=== PATIENT | male | born 1955 | race Caucasian/White ===

== ENCOUNTER 2022-10-06 16:00 | Outpatient (RCR) | payer MEDICARE, SELFPAY ==
--- NOTE | 2022-10-02 12:58 | HP.PTEVAL_ITS ---
Patient's Visit Information BRIDGETTE KINGSLEY is a 66 year old M referred to Physical Therapy by Dr. Frank Arauz DO with a diagnosis of CONTUSION R SCAPULA. Date of Evaluation: 10/02/22 Physical Therapist: Gilma Kramer PT, Cert MDT - Visit Plan Frequency: 1x/Week Duration: 4-6 Weeks Plan: *HEP INSTRUCTION*. POSTURE CORRECTION/STRENGTHENING. R UE ROM, STRETCHING AND STRENGTHENING TO HELP MEET SET GOALS. 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 Disability: NO. Present symptoms: RIGHT SHLD PAIN DOWN TO ELBOW. NO NUMBNESS OR TINGLING. INTERMITTENT NECK PAIN. Present since: JUL 22 2022. Pain Scale: Worst - 4/10 Least - 2/10. Currently: 09/08. Commenced as a result of: FELL DOWN ABOUT 8 STEPS AT HOUSE AT HOME. Symptoms at onset: RIGHT RIB PAIN AND BRUISING. NO FX'S. Worse: LIFTING. Better: STRETCHING R UE OVER HEAD, ICE, KEEPING IT MOVING. Disturbed sleep: NO. Previous history/Previous treatment: UNREMARKABLE. This episode: URGENT CARE IN [place]. CHIROPRACTOR X 1 VISIT WITH NO EFFECT. STATES THE CHIROPRACTOR TOLD HIM NOTHING WAS BROKE AND TO JUST PUT ICE ON IT. PATIENT REPORTS HE ALSO PUT IBUPROFEN TO. PATIENT REPORTS DR. ARNOLD PRESCRIBED MALOXACAM AND HE IS ON IT NOW. NO INJECTIONS. NO SURGERY. Dizziness: NO. Tinnitis: NO. Nausea: NO. Shortness of Breath:NO. Difficulty Swollowing: NO. Gait: NORMAL. Accidents: NO. Unexplained weight loss: NO. Imaging: R RIB X-RAYS AT ONSET - NEGATIVE. [facility] ORDERED X-RAYS OF NECK AND R SHLD BECAUSE RIB PAIN CLEARED UP. PATIENT REPORTS HE FOUND MILD ARTHRITIS IN HIS NECK AND MAYBE A SMALL FX OF SHLD BUT PATIENT REPORTS DR. WISE WASN'T WORRIED ABOUT IT AND SAID IT WOULD HEAL ON HIS OWN. PMH/Recent major surgery: UNREMARKABLE. OTHER: PATIENT REPORTS DR. ARNOLD TOLD HIM AN MRI MIGHT TELL THEM MORE ABOUT THE LOCATION OF THE FRACTION. PATIENT REPORTS HE WANTS TO GIVE IT TIME BEFORE DOING MRI. - Objective Sitting Posture/Standing Posture: FH. RSH'S. R SHLD LEVEL LOWER THAN LEFT. NO TORTICOLLIS. Active Correction of posture: NE. Other Observations: INDEP GAIT AND TRANSFERS. Sensory deficit: MARI UE LIGHT TOUCH SENSATION GROSSLY IN TACT AND SYMMETRICAL. ROM deficit: TIGHT R SHLD ER WITH 90 DEG OF ABD IN SITTING. FULL PASSIVE ER. FULL ACTIVE AND PASSIVE RIGHT SHLD FLEX AND ABD. PAINFUL AND LIMITED R SHLD IR IN SUPINE TO 60 DEG. Motor deficit: R SHLD ER 4/5 AND TESTING PROVOKES C/O MILD R SHLD BLADE PAIN. 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 R SHLD FLEX 5/5, ABD 5/5, IR 4/5, ER 4/5 WITH MMT'ING. R ELBOW 5/5. 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 Dural Signs: NEGATIVE MARI UE'S. Cervical Mvmt Loss: Flex: NIL. Pro: NIL. Ext: MIN. Ret: MIN. RSB: MIN. LSB: MIN. R Rot: MIN. L Rot: MIN. PATIENT REPORTS NECK PAIN WITH MARI CERVICAL ROTATION ROM TESTING. Postural strength: FAIR. TREATMENT: INSTRUCTED PATIENT IN R UE SLEEPER STRETCH FOR IR ROTATION STRETCHING 10-20 REPS, 2-3 TIMES A DAY TOLERATED. RECOMMENDED PT 2-3 TIMES A WK X 3-4 WKS BUT PATIENT WOULD LIKE TO TRY TO COME 1X A WK AND DO MUCH POSSIBLE ON HIS OWN WITH HEP. - Balance/Special Test Scores Quick DASH Score: 18.1800 - Goals Goal 1:: DECREASE C/O R SHLD PAIN Goal Time Frame: 4-6 Weeks Goal 2:: RESTORE FULL ROM R SHLD TO ALLOW FOR RETURN TO PRIOR LEVEL OF FUNCTION Goal Time Frame: 4-6 Weeks Goal 3:: INCREASE RIGHT UE FUNCTIONAL STRENGTH TO IMPROVE WORK FUNCTION Goal Time Frame: 4-6 Weeks Goal 4:: PATIENT WILL BE INDEP WITH HEP FOR CONTINUED IMPROVEMENT ONCE FORMAL PHYSICAL THERAPY CONCLUDES. Goal Time Frame: 4-6 Weeks - Anticipated Interventions Patient/Client Instruction: Educate patient on: Condition, Plan of Care, Risk Factors For the Purpose of:: To improve self management Therapeutic Exercise to Include: Strength training, Body mechanics, Postural training, Flexibilty training, Neuromotor development, Scapular Strength/Stabilization For the Purpose of:: To decrease pain, To increase ROM, To improve muscle performance and motor function, To increase tolerance to activity/condition/position, To improve ability of physical actions for home/community/work/leisure Thank you for the opportunity to evaluate your patient. For Medicare and Medicare HMO plans, please review the plan of care and approve it. It will need to be FAXED BACK to us at [phone] for Medicare purposes. For Medicare only, by signing this I certify the plan of care. Please let me know if there are questions or concerns regarding this plan of care. Physician Signature: Date:
--- NOTE | 2023-02-26 15:35 | HP.PTDCNRP_ITS ---
Patient Information Patient Information: BRIDGETTE KINGSLEY was seen in my office for initial evaluation on 10/02/22. The following Plan of Care was established for this patient: POC Established Initial Frequency: 1x/Week Initial Duration: 4-6 Weeks Anticipated Interventions Patient/Client Instruction: Educate patient on: Condition, Plan of Care and Risk Factors For the Purpose of:: To improve self management Therapeutic Exercise to Include: Strength training, Body mechanics, Postural training, Flexibilty training, Neuromotor development and Scapular Strength/Stabilization For the Purpose of:: To decrease pain, To increase ROM, To improve muscle performance and motor function, To increase tolerance to activity/condition/ position and To improve ability of physical actions for home/community/work/leisure Last Seen Last Seen: This patient was last seen in our office 10/06/22. Pertinent comments regarding their Physical therapy will appear below: This patient has not returned to Physical Therapy and is appropriate to return to MD for further follow-up as needed. At this point I will be discontinuing this patient from physical therapy. I would be happy to see this patient again in the future if found appropriate by the physician. Thank you! Gilma Kramer, PT, Cert MDT Balance/Gait/Functional tests Balance/Special Test Scores Quick DASH Score: 18.1800
== END 2022-10-06 19:00 | disposition home or self-care (01) ==
LOC: PT 16:00
PROVIDERS: Referring Provider Orthopaedic Surgery; Visit Provider Orthopaedic Surgery
DX: S40.011D Contusion of right shoulder, subsequent encounter (principal)
CPT/HCPCS: 97110; 97162; 97530